=== PATIENT | female | born 1955 | race Caucasian/White ===

== ENCOUNTER 2017-08-05 19:56 | Emergency (ER) | payer MEDICAID ==
[~2017-08-05] VITALS: Ht 152.4 cm; Wt 96.0 kg
[2017-08-05] MEDS ORDERED: ONDANSETRON HCL 4MG/2ML VIAL IV ONE (21:30)
[2017-08-05 21:52] LABS: BASOPHILS % 1.3 % (0.0-2.0); EOSINOPHILS % 5.3 % (0.0-5.0); HEMATOCRIT. 35.8 % (36.0-48.0); LYMPHOCYTES % 22.4 % (20.0-50.0); MEAN CORPUSCULAR HEMOGLOBIN 28.3 pg (28.0-32.0); MEAN CORPUSCULAR VOLUME 84.9 fL (81.0-99.0); MEAN PLATELET VOLUME 8.5 fl (7.4-10.4); MONOCYTES % 9.3 % (2.0-8.0); NEUTROPHILS % 61.7 % (40.0-76.0); PLATELET 289 x1000/uL (130-400); RED BLOOD CELL COUNT 4.22 mill/uL (4.2-5.4); RED CELL DISTRIBUTION WIDTH 14.3 % (11.6-14.6)
[2017-08-05] MEDS ORDERED: LABETALOL HCL 20MG/4ML CARPUJECT IV PRN (22:00)
[2017-08-05 22:09] LABS: CARBON DIOXIDE 23 mEq/L (21-32); CHLORIDE 107 mEq/L (98-107); TROPONIN I < 0.02 ng/mL (0.00-0.04)
[2017-08-05] MEDS ORDERED: LABETALOL 5MG/ML SYR 20 MG/4 ML SYRINGE IV SCH (22:14)
[2017-08-05 23:46] LABS: CLARITY URINE CLEAR (CLEAR); COLOR URINE YELLOW (YELLOW); GLUCOSE URINE TRACE (NEGATIVE); KETONES URINE NEGATIVE (NEGATIVE); LEUKOCYTE ESTERASE URINE TRACE (NEGATIVE); NITRITE URINE NEGATIVE (NEGATIVE); OCCULT BLOOD URINE 1+ (NEGATIVE); PH URINE 6.5 (4.5-8.0); PROTEIN URINE 4+ (NEGATIVE); SPECIFIC GRAVITY URINE 1.013 (1.005-1.030); UROBILINOGEN URINE 0.2 E.U./dL (0.2-1.0)
[2017-08-06 00:22] VITALS: BP 161/78
== END 2017-08-06 01:00 | disposition home or self-care (01) ==
LOC: ER 20:04
DX: E10.649 Type 1 diabetes mellitus with hypoglycemia without coma (principal); Z79.4 Long term (current) use of insulin; Z79.84 Long term (current) use of oral hypoglycemic drugs; I11.0 Hypertensive heart disease with heart failure; I50.9 Heart failure, unspecified
CPT/HCPCS: 36415; 71010; 80053; 81001; 82962; 83690; 83880; 84484; 85025; 93005; 96374; 96375; 99285; J2405; J3490; Z7610

== ENCOUNTER 2019-01-17 21:16 | Inpatient (IN) | payer OTHER, MEDICAID ==
[~2019-01-17] VITALS: Ht 162.6 cm; Wt 90.3 kg
[2019-01-17 23:37] LABS: BASOPHILS % 0.8 % (0.0-2.0); EOSINOPHILS % 3.2 % (0.0-5.0); HEMATOCRIT. 30.7 % (36.0-48.0); HEMOGLOBIN. 10.2 g/dL (12.0-16.0); LYMPHOCYTES % 13.2 % (20.0-50.0); MEAN CORPUSCULAR HEMOGLOBIN 28.9 pg (28.0-32.0); MEAN CORPUSCULAR VOLUME 87.1 fL (81.0-99.0); MEAN PLATELET VOLUME 9.1 fl (7.4-10.4); MONOCYTES % 7.1 % (2.0-8.0); NEUTROPHILS % 75.7 % (40.0-76.0); PLATELET 236 x1000/uL (130-400); RED BLOOD CELL COUNT 3.52 mill/uL (4.2-5.4); RED CELL DISTRIBUTION WIDTH 13.9 % (11.6-14.6)
[2019-01-17 23:41] LABS: CHLORIDE 103 mEq/L (98-107)
[2019-01-17] MEDS ORDERED: ALBUTEROL (0.083%) 2.5MG/3ML NEB HHN STA (23:59)
[2019-01-17] MEDS ORDERED: ONDANSETRON HCL 4MG/2ML INJ IV STA (23:59)
[2019-01-17] MEDS ORDERED: MORPHINE SULFATE 4 MG/ML CPJ (NOT FOR IM USE) IV STA (23:59)
[2019-01-18] MEDS ORDERED: ASPIRIN 81MG TABLET PO ONE
[2019-01-18] MEDS ORDERED: NITROGLYCERIN OINT 1GM/INCH UDPKT TD ONE
[2019-01-18] MEDS ORDERED: FUROSEMIDE 40MG/4ML VIAL IV ONE
[2019-01-18 05:30] VITALS: BP 176/62
[2019-01-18 08:00] VITALS: BP 161/72
[2019-01-18] MEDS ORDERED: ONDANSETRON HCL 4MG/2ML INJ IV PRN (10:15)
[2019-01-18] MEDS ORDERED: ENOXAPARIN 40MG/0.4ML SYR SUBCUT SCH (10:15)
[2019-01-18] MEDS ORDERED: ACETAMINOPHEN 325MG TABLET PO PRN (10:15)
[2019-01-18] MEDS ORDERED: CLONIDINE 0.1MG TABLET PO PRN (10:15)
[2019-01-18] MEDS ORDERED: GUAIFENESIN 200MG/10ML SUGAR FREE UDC PO PRN (10:15)
[2019-01-18] MEDS ORDERED: MAGNESIUM/ALUMINUM HYDROXIDE/SIMETHICONE 30ML UDC PO PRN (10:15)
[2019-01-18] MEDS ORDERED: DOCUSATE SODIUM 100MG CAPSULE PO PRN (10:15)
[2019-01-18] MEDS ORDERED: HYDROCODONE/ACETAMINOPHEN 5/325MG TABLET PO PRN (10:15)
[2019-01-18] MEDS ORDERED: HYDR-4135 MT (10:36)
[2019-01-18] MEDS ORDERED: GABA-531 PO (10:36)
[2019-01-18] MEDS ORDERED: AMLO5TAB88 PO (10:37)
[2019-01-18] MEDS ORDERED: FURO40TA5 PO (10:38)
[2019-01-18] MEDS ORDERED: COR6 MT (10:40)
[2019-01-18] MEDS ORDERED: SITA100T11 MT (10:42)
[2019-01-18] MEDS ORDERED: ASPI-1158 MT (10:44)
[2019-01-18 12:00] VITALS: BP 169/76
[2019-01-18] MEDS: AMLODIPINE 10MG TABLET PO SCH (12:50)
[2019-01-18 15:00] VITALS: BP 173/62
[2019-01-18] MEDS: HYDRALAZINE HCL 50MG TABLET PO SCH ×2 (15:06→21:39)
[2019-01-18 16:00] VITALS: BP 152/71
[2019-01-18 16:23] LABS: CREATINE KINASE 125 IU/L (26-192)
[2019-01-18 16:25] LABS: CREATINE KINASE MB FRACTION 1.3 ng/mL (0.5-3.6)
[2019-01-18] MEDS: FUROSEMIDE 40MG/4ML VIAL IV SCH (17:56)
[2019-01-18] MEDS ORDERED: DEXTROSE 50% WATER 50ML SYRINGE IV PRN (19:00)
[2019-01-18] MEDS: BLOOD SUGAR DIAGNOSTIC STRIP TEST SCH ×2 (19:03→21:55)
[2019-01-18] MEDS: INSULIN LISPRO 100 UNITS/ML SUBCUT SCH ×2 (19:08→21:55)
[2019-01-18 20:00] VITALS: BP 160/70
[2019-01-18] MEDS: GABAPENTIN 300MG CAPSULE PO SCH (21:38)
[2019-01-18] MEDS: CARVEDILOL 6.25 MG TABLET PO SCH (21:39)
[2019-01-19] VITALS: BP 140/60
[2019-01-19 00:20] LABS: CREATINE KINASE 113 IU/L (26-192)
[2019-01-19 00:21] LABS: CREATINE KINASE MB FRACTION 1.3 ng/mL (0.5-3.6)
[2019-01-19 04:00] VITALS: BP 145/57
[2019-01-19 07:40] VITALS: BP 159/54
[2019-01-19] MEDS: HYDRALAZINE HCL 50MG TABLET PO SCH (08:00)
[2019-01-19] MEDS: FUROSEMIDE 40MG/4ML VIAL IV SCH (08:04)
[2019-01-19 08:15] LABS: BASOPHILS % 1.1 % (0.0-2.0); EOSINOPHILS % 3.3 % (0.0-5.0); HEMATOCRIT. 27.3 % (36.0-48.0); HEMOGLOBIN. 9.1 g/dL (12.0-16.0); LYMPHOCYTES % 16.9 % (20.0-50.0); MEAN PLATELET VOLUME 9.6 fl (7.4-10.4); MONOCYTES % 8.5 % (2.0-8.0); NEUTROPHILS % 70.2 % (40.0-76.0); PLATELET 189 x1000/uL (130-400); RED BLOOD CELL COUNT 3.14 mill/uL (4.2-5.4); RED CELL DISTRIBUTION WIDTH 13.7 % (11.6-14.6)
[2019-01-19] MEDS: BLOOD SUGAR DIAGNOSTIC STRIP TEST SCH ×2 (08:30→12:54)
[2019-01-19] MEDS: INSULIN LISPRO 100 UNITS/ML SUBCUT SCH ×2 (08:41→13:01)
[2019-01-19 08:54] LABS: CHLORIDE 107 mEq/L (98-107)
[2019-01-19] MEDS ORDERED: FUROSEMIDE 40MG/4ML VIAL IV SCH (09:00)
[2019-01-19 09:04] LABS: HDL CHOLESTEROL 42 mg/dL (40-59); LDL CHOLESTEROL 111 mg/dL (5-100)
[2019-01-19 10:02] VITALS: BP 150/67
[2019-01-19] MEDS: CARVEDILOL 6.25 MG TABLET PO SCH (10:04)
[2019-01-19] MEDS: AMLODIPINE 10MG TABLET PO SCH (10:04)
[2019-01-19] MEDS: GABAPENTIN 300MG CAPSULE PO SCH (10:05)
[2019-01-19] MEDS ORDERED: ENOXAPARIN 40MG/0.4ML SYR SUBCUT SCH (11:00)
[2019-01-19 11:59] VITALS: BP 150/62
[2019-01-19 12:00] VITALS: BP 150/62
[2019-01-31] MEDS ORDERED: SIMV40TA5 MT (13:41)
[2019-01-31] MEDS ORDERED: POTA20TA82 MT (13:41)
[2019-01-31] MEDS ORDERED: NITR0.4T49 SL (13:41)
== END 2019-01-19 14:01 | disposition home or self-care (01) | DRG 194 ==
LOC: ER 21:16 → 7WST 01-18 00:19 → ENRESERV 01-18 04:48
PROVIDERS: ADMIT Hospitalist; ATTEND Hospitalist
DX: I13.0 Hypertensive heart and chronic kidney disease with heart failure and stage 1 through stage 4 chronic kidney disease, or unspecified chronic kidney disease (principal); N17.9 Acute kidney failure, unspecified; E11.22 Type 2 diabetes mellitus with diabetic chronic kidney disease; E88.09 Other disorders of plasma-protein metabolism, not elsewhere classified; I50.23 Acute on chronic systolic (congestive) heart failure; I24.9 Acute ischemic heart disease, unspecified; E78.00 Pure hypercholesterolemia, unspecified; E78.5 Hyperlipidemia, unspecified; I20.9 Angina pectoris, unspecified; N18.9 Chronic kidney disease, unspecified; Z98.49 Cataract extraction status, unspecified eye
CPT/HCPCS: 36415; 71045; 80061; 82550; 82553; 82962; 83036; 83735; 83880; 84100; 84484; 93005; 93306; 93970; 94640; 99291; J1650; J1815; J1940; J2270; J7611

== ENCOUNTER 2019-07-26 08:47 | Emergency (ER) | payer MEDICAID ==
[~2019-07-26] VITALS: Ht 167.6 cm; Wt 91.0 kg
[~2019-07-26 08:47] MED LIST: AMLO5TAB88 PO; ASPI-1158 MT; COR6 MT; FURO40TA5 PO; GABA-531 PO; HYDR-4135 MT; NITR0.4T49 SL; POTA20TA82 MT; SIMV40TA5 MT; SITA100T11 MT
[2019-07-26] MEDS ORDERED: SODIUM CHLORIDE 0.9% 1,000 ML IV ONE (09:54)
[2019-07-26] MEDS ORDERED: ONDANSETRON HCL 4MG/2ML INJ IV STA (09:54)
[2019-07-26] MEDS ORDERED: MECLIZINE 25MG TABLET PO ONE (10:00)
[2019-07-26 10:17] LABS: BASOPHILS % 1.1 % (0.0-2.0); EOSINOPHILS % 1.3 % (0.0-5.0); HEMOGLOBIN. 10.8 g/dL (12.0-16.0); MEAN CORPUSCULAR HEMOGLOBIN 28.6 pg (28.0-32.0); MEAN CORPUSCULAR VOLUME 84.6 fL (81.0-99.0); MEAN PLATELET VOLUME 9.1 fl (7.4-10.4); MONOCYTES % 5.6 % (2.0-8.0); PLATELET 280 x1000/uL (130-400); RED BLOOD CELL COUNT 3.78 mill/uL (4.2-5.4); RED CELL DISTRIBUTION WIDTH 14.2 % (11.6-14.6)
[2019-07-26 10:26] LABS: CHLORIDE 105 mEq/L (98-107)
[2019-07-26] MEDS ORDERED: HYDRALAZINE 20MG/ML VIAL IV ONE (11:45)
[2019-07-26 12:50] VITALS: BP 217/86
[2019-07-27] MEDS ORDERED: FURO80TA3 MT (10:57)
[2019-07-27] MEDS ORDERED: SERT25TA74 MT (10:57)
[2019-07-27] MEDS ORDERED: ONDA4SOL PO (10:57)
[2019-07-27] MEDS ORDERED: ATOR20TA65 PO (10:57)
[2019-07-27] MEDS ORDERED: GLIM2TAB2 MT (10:57)
[2019-07-27] MEDS ORDERED: MECL-109 PO ×2 (10:57)
== END 2019-07-26 12:56 | disposition home or self-care (01) ==
LOC: ER 08:47 → SUPCPDRO 07-27 15:32
DX: R42 Dizziness and giddiness (principal); R11.10 Vomiting, unspecified; E11.9 Type 2 diabetes mellitus without complications; E78.00 Pure hypercholesterolemia, unspecified; I10 Essential (primary) hypertension; Z98.890 Other specified postprocedural states; Z79.899 Other long term (current) drug therapy; Z79.82 Long term (current) use of aspirin
CPT/HCPCS: 36415; 70450; 71045; 80053; 84484; 85025; 93005; 96374; 96375; 99284; J0360; J2405; J7030; J8597; Z7610

== ENCOUNTER 2019-07-26 19:45 | Inpatient (IN) | payer MEDICAID ==
[~2019-07-26] VITALS: Ht 162.6 cm; Wt 83.0 kg
[2019-07-26] MEDS ORDERED: ONDANSETRON HCL 4MG/2ML INJ IV STA (23:45)
[2019-07-26] MEDS ORDERED: HYDRALAZINE 20MG/ML VIAL IV ONE (23:45)
[2019-07-27 00:14] LABS: BASOPHILS % 0.9 % (0.0-2.0); EOSINOPHILS % 0.8 % (0.0-5.0); HEMATOCRIT. 30.8 % (36.0-48.0); HEMOGLOBIN. 10.4 g/dL (12.0-16.0); LYMPHOCYTES % 16.6 % (20.0-50.0); MEAN CORPUSCULAR VOLUME 85.8 fL (81.0-99.0); MEAN PLATELET VOLUME 9.4 fl (7.4-10.4); MONOCYTES % 7.5 % (2.0-8.0); NEUTROPHILS % 74.2 % (40.0-76.0); PLATELET 299 x1000/uL (130-400); RED BLOOD CELL COUNT 3.59 mill/uL (4.2-5.4); RED CELL DISTRIBUTION WIDTH 14.1 % (11.6-14.6)
[2019-07-27 00:25] LABS: CHLORIDE 106 mEq/L (98-107)
[2019-07-27] MEDS ORDERED: MORPHINE SULFATE 4 MG/ML CPJ (NOT FOR IM USE) IV ONE (03:00)
[2019-07-27] MEDS ORDERED: CLONIDINE 0.2MG TABLET PO ONE (03:00)
[2019-07-27] MEDS ORDERED: HYDRALAZINE 20MG/ML VIAL IV ONE (07:45)
[2019-07-27] MEDS: AMLODIPINE 10MG TABLET PO SCH (08:18)
[2019-07-27 09:30] VITALS: BP 195/88
[2019-07-27] MEDS ORDERED: ATOR20TA65 PO (10:57)
[2019-07-27] MEDS ORDERED: SERT25TA74 MT (10:57)
[2019-07-27] MEDS ORDERED: GLIM2TAB2 MT (10:57)
[2019-07-27] MEDS ORDERED: ONDA4SOL PO (10:57)
[2019-07-27] MEDS ORDERED: MECL-109 PO ×2 (10:57)
[2019-07-27] MEDS ORDERED: FURO80TA3 MT (10:57)
[2019-07-27 12:00] VITALS: BP 184/77
[2019-07-27] MEDS ORDERED: MAGNESIUM/ALUMINUM HYDROXIDE/SIMETHICONE 30ML UDC PO PRN (12:30)
[2019-07-27] MEDS ORDERED: ACETAMINOPHEN 650MG SUPP PR PRN (12:30)
[2019-07-27] MEDS ORDERED: LORAZEPAM 0.5MG TABLET PO PRN (12:30)
[2019-07-27] MEDS ORDERED: ONDANSETRON HCL 4MG/2ML INJ IV PRN (12:30)
[2019-07-27] MEDS ORDERED: DEXTROSE 50% WATER 50ML SYRINGE IV PRN (12:30)
[2019-07-27] MEDS ORDERED: IPRATROPIUM/ALBUTEROL 0.5-3(2.5)MG/3ML NEB NEB PRN (12:30)
[2019-07-27] MEDS ORDERED: DIPHENHYDRAMINE 50MG/ML VIAL IV PRN (12:30)
[2019-07-27] MEDS ORDERED: DOCUSATE SODIUM 100MG CAPSULE PO PRN (12:30)
[2019-07-27] MEDS ORDERED: HYDROCODONE/ACETAMINOPHEN 5/325MG TABLET PO PRN (12:30)
[2019-07-27] MEDS ORDERED: ACETAMINOPHEN 325MG TABLET PO PRN (12:30)
[2019-07-27] MEDS ORDERED: NA PHOS,M-B/NA PHOS,DI-BA ENEMA 118ML PR PRN (12:30)
[2019-07-27] MEDS ORDERED: GUAIFENESIN 200MG/10ML SUGAR FREE UDC PO PRN (12:30)
[2019-07-27] MEDS: BLOOD SUGAR DIAGNOSTIC STRIP TEST SCH ×3 (14:32→20:22)
[2019-07-27] MEDS: NITROGLYCERIN OINT 1GM/INCH UDPKT TD SCH ×2 (15:10→21:08)
[2019-07-27] MEDS: HYDRALAZINE HCL 50MG TABLET PO SCH ×2 (15:11→21:08)
[2019-07-27] MEDS: INSULIN LISPRO 100 UNITS/ML SUBCUT SCH ×3 (15:16→21:07)
[2019-07-27 15:54] LABS: PROTHROMBIN TIME 10.7 sec (9.6-11.0)
[2019-07-27 16:00] VITALS: BP 161/68
[2019-07-27 16:11] LABS: CREATINE KINASE MB FRACTION 2.1 ng/mL (0.5-3.6)
[2019-07-27 16:16] LABS: CREATINE KINASE 194 IU/L (26-192)
[2019-07-27] MEDS ORDERED: INSULIN GLARGINE UD 100 UNITS/ML SYR SUBCUT NR (17:30)
[2019-07-27] MEDS ORDERED: MECLIZINE 25MG TABLET PO PRN (19:00)
[2019-07-27 20:00] VITALS: BP 160/59
[2019-07-27] MEDS: PANTOPRAZOLE SODIUM 40 MG/VIAL IV SCH (21:09)
[2019-07-27] MEDS: CLONIDINE 0.1MG TABLET PO PRN (22:20)
[2019-07-27 22:23] VITALS: BP 165/73
[2019-07-27 22:58] LABS: CLARITY URINE TURBID (CLEAR); COLOR URINE YELLOW (YELLOW); KETONES URINE NEGATIVE (NEGATIVE); LEUKOCYTE ESTERASE URINE 2+ (NEGATIVE); NITRITE URINE NEGATIVE (NEGATIVE); OCCULT BLOOD URINE NEGATIVE (NEGATIVE); PROTEIN URINE 4+ (NEGATIVE); SPECIFIC GRAVITY URINE 1.016 (1.005-1.030); UROBILINOGEN URINE 0.2 E.U./dL (0.2-1.0)
[2019-07-27 23:10] LABS: *AMPHETAMINES SCREEN URINE NEGATIVE (NEGATIVE); *BARBITURATES SCREEN URINE NEGATIVE (NEGATIVE); CANNABINOID URINE SCREEN NEGATIVE (NEGATIVE); METHADONE URINE SCREEN NEGATIVE (NEGATIVE); OPIATES URINE SCREEN PRESUMTIVE POSITIVE (NEGATIVE); PHENCYCLIDINE URINE SCREEN NEGATIVE (NEGATIVE)
[2019-07-27 23:11] LABS: *BENZODIAZEPINES SCREEN URINE NEGATIVE (NEGATIVE); *COCAINE SCREEN URINE NEGATIVE (NEGATIVE)
[2019-07-28] VITALS: BP 152/60
[2019-07-28 00:51] LABS: CREATINE KINASE 202 IU/L (26-192)
[2019-07-28 00:52] LABS: CREATINE KINASE MB FRACTION 2.1 ng/mL (0.5-3.6)
[2019-07-28 04:00] VITALS: BP 191/77
[2019-07-28] MEDS: CLONIDINE 0.1MG TABLET PO PRN (04:18)
[2019-07-28] MEDS: HYDRALAZINE HCL 50MG TABLET PO SCH ×2 (05:59→13:33)
[2019-07-28] MEDS: NITROGLYCERIN OINT 1GM/INCH UDPKT TD SCH ×2 (06:00→13:34)
[2019-07-28] MEDS: BLOOD SUGAR DIAGNOSTIC STRIP TEST SCH ×2 (06:20→11:36)
[2019-07-28 06:37] LABS: EOSINOPHILS % 1.1 % (0.0-5.0); HEMATOCRIT. 29.1 % (36.0-48.0); HEMOGLOBIN. 9.8 g/dL (12.0-16.0); LYMPHOCYTES % 10.9 % (20.0-50.0); MEAN CORPUSCULAR HEMOGLOBIN 28.7 pg (28.0-32.0); MEAN CORPUSCULAR VOLUME 85.5 fL (81.0-99.0); MEAN PLATELET VOLUME 8.7 fl (7.4-10.4); MONOCYTES % 6.2 % (2.0-8.0); NEUTROPHILS % 80.8 % (40.0-76.0); PLATELET 257 x1000/uL (130-400)
[2019-07-28 06:45] LABS: CHLORIDE 104 mEq/L (98-107)
[2019-07-28 06:56] LABS: LDL CHOLESTEROL 83 mg/dL (5-100)
[2019-07-28 06:57] LABS: HDL CHOLESTEROL 36 mg/dL (40-59)
[2019-07-28 08:00] VITALS: BP 161/73
[2019-07-28] MEDS: INSULIN LISPRO 100 UNITS/ML SUBCUT SCH (08:37)
[2019-07-28] MEDS: PANTOPRAZOLE SODIUM 40 MG/VIAL IV SCH (08:38)
[2019-07-28] MEDS: AMLODIPINE 10MG TABLET PO SCH (08:38)
[2019-07-28] MEDS ORDERED: ASPIRIN 81MG EC TABLET PO SCH (09:00)
[2019-07-28] MEDS ORDERED: INSULIN GLARGINE UD 100 UNITS/ML SYR SUBCUT SCH (10:00)
[2019-07-28 12:00] VITALS: BP_SYST 117; BP_SYST 141; BP_SYST 148; BP_DIAS 64; BP_DIAS 67
[2019-07-28] MEDS ORDERED: INSULIN LISPRO 100 UNITS/ML SUBCUT SCH (12:50)
[2019-07-28] MEDS ORDERED: SODIUM CHLORIDE 0.9% 250 ML IV ONE (13:30)
[2019-07-28] MEDS ORDERED: CEFTRIAXONE 1 G PREMIX 50 ML IV SCH (14:00)
[2019-07-28 16:00] VITALS: BP_SYST 123; BP_SYST 128; BP_SYST 136; BP_DIAS 76; BP_DIAS 79; BP_DIAS 81
[2019-07-28 16:42] VITALS: BP 136/76
[2019-07-29] MEDS ORDERED: INSULIN GLARGINE UD 100 UNITS/ML SYR SUBCUT SCH (10:00)
== END 2019-07-28 17:10 | disposition home or self-care (01) | DRG 243 ==
LOC: ER 19:57 → 6WST 07-27 04:37 → EDBEDREQ 07-27 04:39 → EDBEDREQDT 07-27 04:39 → EDBEDREQTM 07-27 04:39 → ENRESERV 07-27 07:39
PROVIDERS: ADMIT Internal Medicine; ATTEND Internal Medicine
DX: K21.9 Gastro-esophageal reflux disease without esophagitis (principal); I50.33 Acute on chronic diastolic (congestive) heart failure; E11.22 Type 2 diabetes mellitus with diabetic chronic kidney disease; G90.8 Other disorders of autonomic nervous system; I31.3 Pericardial effusion (noninflammatory); D64.9 Anemia, unspecified; I13.0 Hypertensive heart and chronic kidney disease with heart failure and stage 1 through stage 4 chronic kidney disease, or unspecified chronic kidney disease; E66.9 Obesity, unspecified; E78.00 Pure hypercholesterolemia, unspecified; E78.5 Hyperlipidemia, unspecified; F32.9 Major depressive disorder, single episode, unspecified; N18.9 Chronic kidney disease, unspecified; N20.0 Calculus of kidney; N39.0 Urinary tract infection, site not specified; Z79.899 Other long term (current) drug therapy; Z68.31 Body mass index [BMI] 31.0-31.9, adult
CPT/HCPCS: 36415; 74176; 80061; 80305; 81003; 82550; 82553; 82962; 83036; 84439; 84443; 84484; 87077; 87186; 93005; 93306; 93970; 99291; C9113; J0360; J0696; J1815; J2270; J2405